=== PATIENT | female | born 1955 | race African-American/Black ===

== ENCOUNTER → 2018-07-15 | Outpatient (CLI) | payer BC ==
[~2018-07-15] MED LIST: ASPIRIN81 MG; BAYER ADVANCED500 MG; CLOPIDOGREL75 MG PO; FUROSEMIDE40 MG PO; HYZAAR 50-12.51 EACH; K-TAB10 MEQ PO; LASIX; LIPITOR10 MG PO; NADOLOL40 MG PO; PREMARIN0.45 MG PO; SPIRONOLACTONE25 MG PO; ZOLPIDEM TARTRA10 MG PO
--- NOTE | 2018-07-15 15:36 | Diagnostic Imaging Report ---
RIGHT HIP - 3 VIEWS HISTORY: Pain COMPARISON: None available. FINDINGS: Some of the osseous structures are partially obscured by stool and overlying bowel gas. 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 Osseous alignment is within normal limits. Joints: Mild bilateral degenerative changes of the hips and right sacroiliac joint. Soft tissues: The soft tissues appear unremarkable. IMPRESSION: 1. No acute radiographic abnormality. 2. 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 3. Mild bilateral osteoarthrosis of the hips. Signed by: Dr. Mohamud Richards D.O., M.M.M. on 07/15/2018 3:33 PM
--- NOTE | 2018-07-15 18:58 | Diagnostic Imaging Report ---
EXAMINATION: Right shoulder series. CLINICAL HISTORY: Bursitis of shoulder. COMPARISON: None. . Discussion: The osseous structures are intact without evidence of acute, displaced fracture or dislocation. No osteolytic or osteoblastic lesions. There is no evidence of a.c. separation. The glenohumeral joint is within normal limits. The soft tissues are unremarkable. IMPRESSION: 1. No acute abnormalities. MRI of the shoulder is recommended if there is continued pain and clinical concern for ligamentous or labral injury. Signed by: Dr. Naresh Roman M.D. on 07/15/2018 6:55 PM
== END ==
LOC: RAD 14:33
PROVIDERS: ATTEND Anesthesiologist Assistant
DX: M75.51 Bursitis of right shoulder (principal); M25.551 Pain in right hip

== ENCOUNTER → 2018-07-25 | Outpatient (CLI) | payer BC ==
--- NOTE | 2018-07-25 14:35 | Diagnostic Imaging Report ---
Exam: Cervical spine AP lateral oblique History: Neck pain Comparison: None. Findings: No fracture. Degenerative anterolisthesis of C4 on C5 and retrolisthesis of C5 on C6. Multilevel degenerative disc disease most prominent at C5-C6 and C6-C7. Multilevel facet arthropathy. Multilevel foraminal stenosis most prominent at C5-C6. Impression: Advanced multilevel cervical spondyloarthropathy most severe at C5-C6 with foraminal stenosis Signed by: Dr. Celestino Vogt M.D. on 07/25/2018 2:31 PM
== END ==
LOC: MRI 13:26
PROVIDERS: ATTEND Anesthesiologist Assistant
DX: M54.12 Radiculopathy, cervical region (principal)
CPT/HCPCS: 72050

== ENCOUNTER → 2018-08-04 | Day surgery (SDC) | payer BC ==
[2018-07-15 16:49] LABS: BASOPHILS % 0.1 % (0.0-1.0); HEMATOCRIT 39.5 % (34.2-44.1); HEMOGLOBIN 13.4 g/dL (12.0-16.0); LYMPHOCYTES # (AUTO) 2.4 (1.0-3.2); LYMPHOCYTES % 24.4 % (18.0-39.1); MEAN CORPUSCULAR HEMOGLOBIN 30.7 pg (28-32); MEAN CORPUSCULAR HGB CONC 33.9 g/dL (31-35); MEAN CORPUSCULAR VOLUME 90.4 fL (81-99); MONOCYTES # (AUTO) 0.3 (0.2-0.8); MONOCYTES % 3.3 % (4.4-11.3); NEUTROPHILS # (AUTO) 7.1 (2.1-6.9); NEUTROPHILS % 71.6 % (38.7-80.0); PLATELET COUNT 404 x10e3/uL (140-360); RED BLOOD COUNT 4.37 x10e6/uL (3.6-5.1); RED CELL DISTRIBUTION WIDTH 12.2 % (11.7-14.4)
[~2018-08-04] MED LIST changes: +FENTANYL CITRATE/PF 100MCG/2 ML INJ ONE; +HYOSCYAMINE SULFATE 0.5 MG/ML INJ ONE; +MIDAZOLAM HCL 2 MG/2 ML VIAL ONE; +PROPOFOL IV EMULSION 10 MG/ML 20 ML VIAL ONE
--- OUTSIDE RECORDS SUMMARY | 2018-08-04 10:38 | XMS REPORT | Continuity of Care Document ---
Author Author [facility] Interface Address Unknown Phone Unavailable Problems Problem Status Onset Date Classification Date Reported Comments Source Discharge Diagnosis: Dyspnea 11/19/2016 11/22/2016 [facility] SHORTNESS OF BREATH Active 11/19/2016 [facility] Z13.820 - ENCOUNTER FOR SCREENING FOR OS Active 09/06/2015 [facility] STAT; 729.5; CALF TENDERNESS 782.3; ROLDAN Active 03/29/2014 [facility] Final: Encounter for screening mammogram for malignant neoplasm of breast 09/10/2016 [facility] Migraines Active Problem 09/13/2017 [facility] Medications Medication Details Route Status Patient Instructions Ordering Provider Order Date Source Sodium Chloride 0.154 MEQ/ML Injectable Solution 1,000 mL, Infuse Over: 1 hr, Route: IV, ONCE, Priority: STAT, Dosing Weight 69.545 kg, Start date: 11/19/16 16:21:00 BUSINESS INFORMATION CONSULTANT, Duration: 1 doses or times, Stop date: 11/19/16 16:21:00 BUSINESS INFORMATION CONSULTANT Inactive 11/19/2016 [facility] Saline Flush 0.9% 10 mL, Route: IVP, Drug Form: INJ, kg, PRN, PRN Line Flush, Start date: 11/19/16 14:55:00 BUSINESS INFORMATION CONSULTANT, Duration: 30 day, Stop date: 12/19/16 15:54:00 CDTNotes: (Same as: BD Posiflush) Inactive 11/19/2016 [facility] Allergies, Adverse Reactions, Alerts Substance Category Reaction Severity Reaction type Status Date Reported Comments Source Immunizations Immunization Date Given Site Status Last Updated Comments Source Results Order Name Results Value Reference Range Date Interpretation Comments Source Breast Mammo Scrn CARLOS incl CAD MA Breast Mammo Scrn CARLOS incl CAD MA BILATERAL DIGITAL SCREENING MAMMOGRAM WITH CAD: 09/10/2017 CLINICAL: Screening/Annual Virginia Galvan 1955. Current study was evaluated with a Computer Aided Detection (CAD) system. COMPARISON:Comparison is made to exams dated: 09/07/2016 mammogram, 09/08/2015 mammogram, 09/14/2014 mammogram - [facility], 09/14/2013 mammogram - [facility], and 09/12/2012 mammogram - [facility]. TECHNIQUE: Mammographic views were obtained using digital acquisition. Current study was also evaluated with a Computer Aided Detection (CAD) system. FINDINGS: There are scattered fibroglandular densities in both breasts. Bilateral breast implants are intact. No significant masses, calcifications, or other findings are seen in either breast. There has been no significant interval change. IMPRESSION: BENIGN RECOMMENDATION:There is no mammographic evidence of malignancy. A 1 year screening mammogram is recommended.(09/11/2018) This exam was interpreted at [id number] at [facility] [place]. Professional services are provided by the [facility]. Rossy Simpson M.D. to/penrad:09/12/2017 08:34:28 Boat Puller(s): Edyta Awad [facility] letter sent: BI-RADS 1/2 Mammogram BI-RADS: 2 Benign 09/10/2017 - - Read by: Rossy Simpson MD Dictated Date/time: 09/12/17 08:34 Electronically Signed by: Rossy Simpson MD 09/12/17 08:34 FINAL REPORT [facility] URINE AND STOOL UA Ketones Negative 11/19/2016 [facility] URINE AND STOOL UA Urobilinogen <=1.0 mg/dL 0.1 - 1.0 11/19/2016 [facility] URINE AND STOOL UA WBC 1 /HPF 0 - 5 11/19/2016 [facility] URINE AND STOOL UA Mucus Few /LPF None Seen /LPF 11/19/2016 [facility] URINE AND STOOL UA Bacteria Occasional /HPF None Seen /HPF 11/19/2016 [facility] URINE AND STOOL UA Sq Epi Many /LPF Few /LPF 11/19/2016 [facility] URINE AND STOOL UA Leuk Est Negative (11/19/16 4:30 PM) Negative 11/19/2016 [facility] URINE AND STOOL UA Hyal Cast 15 /LPF 0 - 2 11/19/2016 [facility] URINE AND STOOL UA Blood Negative (11/19/16 4:30 PM) Negative 11/19/2016 [facility] URINE AND STOOL UA Nitrite Negative (11/19/16 4:30 PM) Negative 11/19/2016 [facility] URINE AND STOOL UA Spec Grav 1.010 <=1.030 11/19/2016 [facility] URINE AND STOOL UA pH 7.0 5.0 - 8.0 11/19/2016 [facility] URINE AND STOOL UA Protein Negative mg/dL Negative mg/dL 11/19/2016 [facility] URINE AND STOOL UA Glucose Negative mg/dL Negative mg/dL 11/19/2016 [facility] URINE AND STOOL UA Bili Negative *NA* (11/19/16 4:30 PM) Negative 11/19/2016 [facility] URINE AND STOOL UA Color Light Yellow *NA* (11/19/16 4:30 PM) Yellow 11/19/2016 [facility] URINE AND STOOL UA Turbidity Marked *ABN* (11/19/16 4:30 PM) Clear 11/19/2016 [facility] CARDIAC ENZYMES Troponin-I null 0.00 - 0.40 11/19/2016 [facility] CARDIAC ENZYMES CK MB null 0.5 - 3.6 11/19/2016 [facility] CARDIAC ENZYMES BNP 5 pg/mL <=100 pg/mL 11/19/2016 [facility] CARDIAC ENZYMES Total CK 57 unit/L 12 - 191 11/19/2016 [facility] CARDIAC ENZYMES CK MB Index null 0.0 - 2.5 11/19/2016 [facility] ELECTROLYTES Sodium Lvl 139 meq/L 135 - 145 11/19/2016 [facility] ELECTROLYTES Chloride Lvl 100 meq/L 95 - 109 11/19/2016 [facility] ELECTROLYTES Calcium Lvl 8.7 mg/dL 8.5 - 10.5 11/19/2016 [facility] ELECTROLYTES Potassium Lvl 3.6 meq/L 3.5 - 5.1 11/19/2016 [facility] ELECTROLYTES Albumin Lvl 3.5 g/dL 3.5 - 5.0 11/19/2016 [facility] ELECTROLYTES eGFR 67 mL/min/1.73m2 11/19/2016 Result Comment: The eGFR is calculated using the CKD-EPI formula. In most young, healthy individuals the eGFR will be >90 mL/min/1.73m2. The eGFR declines with age. An eGFR of 60-89 may be normal in some populations, particularly the elderly, for whom the CKD-EPI formula has not been extensively validated. Use of the eGFR is not recommended in the following populations: Individuals with unstable creatinine concentrations, including patients and those with serious co-morbid conditions. Patients with extremes in muscle mass or diet. The data above are obtained from the National Kidney Disease Education Program (NKDEP) which additionally recommends that when the eGFR is used in patients with extremes of body mass index for purposes of drug dosing, the eGFR should be multiplied by the estimated BMI. [facility] ELECTROLYTES ALT 23 unit/L 0 - 65 11/19/2016 [facility] ELECTROLYTES Total Protein 7.4 g/dL 6.4 - 8.4 11/19/2016 [facility] ELECTROLYTES B/C Ratio 12 6 - 25 11/19/2016 [facility] ELECTROLYTES AGAP 14.6 meq/L 10.0 - 20.0 11/19/2016 [facility] ELECTROLYTES CO2 28 meq/L 24 - 32 11/19/2016 [facility] ELECTROLYTES Creatinine Lvl 1.04 mg/dL 0.50 - 1.40 11/19/2016 [facility] ELECTROLYTES Globulin 3.9 g/dL 2.7 - 4.2 11/19/2016 [facility] ELECTROLYTES Alk Phos 99 unit/L 39 - 136 11/19/2016 [facility] ELECTROLYTES Bili Total 0.7 mg/dL 0.2 - 1.3 11/19/2016 [facility] ELECTROLYTES AST 18 unit/L 0 - 37 11/19/2016 [facility] ELECTROLYTES A/G Ratio 0.9 0.7 - 1.6 11/19/2016 [facility] ELECTROLYTES Glucose Lvl 90 mg/dL 70 - 99 11/19/2016 [facility] ELECTROLYTES BUN 13 mg/dL 7 - 22 11/19/2016 [facility] HEMATOLOGY Platelet 321 K/CMM 133 - 450 11/19/2016 [facility] HEMATOLOGY RDW 12.3 % 11.5 - 14.5 11/19/2016 [facility] HEMATOLOGY MPV 8.0 fL 7.4 - 10.4 11/19/2016 [facility] HEMATOLOGY Hct 34.8 % 36.0 - 48.0 11/19/2016 [facility] HEMATOLOGY Hgb 11.5 g/dL 12.0 - 16.0 11/19/2016 [facility] MCV 91.0 fL 80.0 - 98.0 11/19/2016 [facility] MCHC 33.1 g/dL 32.0 - 36.0 11/19/2016 [facility] MCH 30.2 pg 27.0 - 31.0 11/19/2016 [facility] WBC 6.1 K/CMM 3.7 - 10.4 11/19/2016 [facility] RBC 3.83 M/CMM 4.20 - 5.40 11/19/2016 [facility] INR 1.09 0.85 - 1.17 11/19/2016 [facility] PT 14.3 s 12.0 - 14.7 11/19/2016 [facility] PTT 30.7 s 22.9 - 35.8 11/19/2016 [facility] Segs-Bands # 2.6 K/CMM 1.5 - 8.1 11/19/2016 [facility] Basophils 0.3 % 0.0 - 1.0 11/19/2016 [facility] Monocytes 7.2 % 2.0 - 12.0 11/19/2016 [facility] Eosinophils 0.5 % 0.0 - 4.0 11/19/2016 [facility] HEMATOLOGY Segs 42.9 % 45.0 - 75.0 11/19/2016 [facility] Lymphocytes 49.1 % 20.0 - 40.0 11/19/2016 [facility] Monocytes # 0.4 K/CMM 0.0 - 0.8 11/19/2016 [facility] Lymphocytes # 3.0 K/CMM 1.0 - 5.5 11/19/2016 [facility] Chest Pulmonary Embolism CTA Chest Pulmonary Embolism CTA CLINICAL HISTORY: Chest pain. Sex: Female. : 1955. TECHNIQUE: CT angiography of the chest was performed with axial dataset after bolus intravenous injection of 100 cc of Omnipaque 300 including computer- generated multiplanar MIP reformations. Total Dose Length Product: [address] for comparison. Same-day chest x-ray at 1459 reviewed . Technical quality: Bolus timing: Adequate . Main pulmonary artery attenuation: 244 HU. Pulmonary arteries: No evidence for acute pulmonary embolism. Aorta: Normal in size without aneurysm or dissection. Heart size: Normal. Pericardial effusion None. Lungs: No pulmonary infiltrate. Pleura: No effusion. Mediastinum: No mass. Kirstie: No mass. Musculoskeletal: Unremarkable. Bilateral breast augmentation. Upper abdomen: Subcentimeter hepatic cyst. IMPRESSION: 1. There is no evidence for acute pulmonary embolism. 11/19/2016 - - Read by: Harlan Bay MD Dictated Date/time: 11/19/16 18:11 Electronically Signed by: Harlan Bay MD 11/19/16 18:14 FINAL REPORT [facility] Chest 2 views DX Chest 2 views DX Exam: Two-view chest x-ray Reason for Exam: Shortness of Breath Comparison Exam: None Discussion: Cardiomediastinal silhouette is within normal limits. Both hemidiaphragms well visualized. No pulmonary edema or pleural effusions. No focal lung consolidations. Trachea is midline. Bilateral breast prostheses are noted. No acute bony abnormalities. Impression: 1. No acute cardiopulmonary abnormalities. 11/19/2016 - - Read by: Gabo Hughes MD Dictated Date/time: 11/19/16 15:13 Electronically Signed by: Gabo Hughes MD 11/19/16 15:14 FINAL REPORT [facility] Digital Mammo Screening Carlos MA Digital Mammo Screening Carlos MA - DIGITAL MAMMO SCREENING CARLOS MA BILATERAL DIGITAL SCREENING MAMMOGRAM WITH CAD WITH AUGMENTATION: 09/07/2016 CLINICAL: Screening Virginia Byrne 1955. Current study was evaluated with a Computer Aided Detection (CAD) system. Comparison is made to exams dated: 09/08/2015 mammogram, 09/14/2014 mammogram - [facility], 09/14/2013 mammogram - [facility] and 09/12/2012 mammogram - [facility]. There are scattered fibroglandular densities in both breasts. Bilateral breast implants are intact. No significant masses, calcifications, or other findings are seen in either breast. There has been no significant interval change. IMPRESSION: BENIGN There is no mammographic evidence of malignancy. A 1 year screening mammogram is recommended. Professional services are provided by the [facility]. Rossy Simpson M.D. to/penrad:09/07/2016 13:15:09 Boat Puller: Edyta Awad, [facility] This exam was dictated and interpreted by [id number] at [facility]. letter sent: Normal exam Mammogram BI-RADS: 2 Benign 09/07/2016 - - Read by: Rossy Simpson MD Dictated Date/time: 09/07/16 13:15 Electronically Signed by: Rossy Simpson MD 09/07/16 13:15 FINAL REPORT [facility] Bone Density DXA Dual Energy MA Bone Density DXA [employer] MA - Bone Density DXA [employer] MA BONE DENSITY EVALUATION: 09/08/2015 CLINICAL DATA: Post menopausal. Z13.820 screening for osteoporosis. COMPARISON: 09/12/2012 AP L1-L4 region of spine using Lunar [employer] X-Ray Absorptiometry from [facility] with reported normal fracture risk, BMD of 1.383g/cm2, T-score of 1.50 and Z-score of 1.80. 09/12/2012 Left total femur area using [employer] X-Ray Absorptiometry from [facility] with reported normal fracture risk, BMD of 1.015g/cm2, T-score of 0.10 and Z-score of -0.20. FINDINGS: Bone density evaluation was performed 09/08/2015 on the AP L1-L4 region of spine using a Hologic unit. The BMD average for the exam is 1.028 g/cm2. The T-score is -0.20 and the Z-score is 0.50. This matches the World Health Organization's criteria for normal bone density and places the patient within normal limits of fracture risk. There is a -16.6% change from previous study. An additional bone density evaluation was performed 09/08/2015 on the right femur neck using a Hologic unit. The BMD average for the exam is 0.906 g/cm2. The T-score is 0.50 and the Z-score is 0.70. This matches the World Health Organization's criteria for normal bone density and places the patient within normal limits of fracture risk. An additional bone density evaluation was performed 09/08/2015 on the right total femur area using a Hologic unit. The BMD average for the exam is 0.994 g/cm2. The T-score is 0.40 and the Z-score is 0.50. This matches the World Health Organization's criteria for normal bone density and places the patient within normal limits of fracture risk. An additional bone density evaluation was performed 09/08/2015 on the left femur neck using a Hologic unit. The BMD average for the exam is 0.854 g/cm2. The Z- score is 0.40. Complete risk assessment of this region was not determined. An additional bone density evaluation was performed 09/08/2015 on the left total femur area using a Hologic unit. The BMD average for the exam is 0.979 g/cm2. The T-score is 0.30 and the Z-score is 0.40. This matches the World Health Organization's criteria for normal bone density and places the patient within normal limits of fracture risk. There is a 3.2% change from previous study. Least significant change (LSC) for the current study cannot be applied to values obtained on the prior studies, which were performed with a different brand machine. The percentage of change is calculated, but no comment can be made as to the significance of this change given different scan types and analysis methods. IMPRESSION: BONE DENSITY WITHIN NORMAL LIMITS Patient is at normal risk for fracture. Patient consult w/primary care provider is recommended. This exam was dictated and interpreted by [id number] at [facility]. Rossy Simpson M.D. to/penrad:09/12/2015 09:50:40 Boat Puller: Dalia Mcgrath [facility] 09/08/2015 - - Read by: Rossy Simpson MD Dictated Date/time: 09/12/15 09:50 Electronically Signed by: Rossy Simpson MD 09/12/15 09:50 FINAL REPORT [facility] Digital Mammo Screening Carlos MA Digital Mammo Screening Carlos MA - DIGITAL MAMMO SCREENING CARLOS MA BILATERAL DIGITAL SCREENING MAMMOGRAM WITH CAD WITH AUGMENTATION: 09/08/2015 CLINICAL: [place] Maria 1955. Current study was evaluated with a Computer Aided Detection (CAD) system. Comparison is made to exams dated: 09/14/2014 mammogram - [facility], 09/14/2013 mammogram - [facility] and 09/12/2012 mammogram - [facility]. The tissue of both breasts is heterogeneously dense, which could obscure detection of small masses. Findings: Bilateral breast implants are stable. No significant masses, calcifications, or other findings are seen in either breast. There has been no significant interval change. IMPRESSION: BENIGN There is no mammographic evidence of malignancy. A 1 year screening mammogram is recommended. Joann jarrell/penrad:09/08/2015 10:26:47 Boat Puller: Edyta Ramsey, [facility] This exam was dictated and interpreted by [address] [place] [id number]. letter sent: Normal exam Mammogram BI-RADS: 2 Benign 09/08/2015 - - Read by: Joann Paniagua MD Dictated Date/time: 09/08/15 10:26 Electronically Signed by: Joann Paniagua MD 09/08/15 10:26 FINAL REPORT [facility] Digital Mammo Screening Carlos MA Digital Mammo Screening Carlos MA - DIGITAL MAMMO SCREENING CARLOS MA BILATERAL DIGITAL SCREENING MAMMOGRAM WITH CAD: 09/14/2014 CLINICAL: Screeninga. Current study was evaluated with a Computer Aided Detection (CAD) system. Comparison is made to exams dated: 09/14/2013 mammogram - [facility] and 09/12/2012 mammogram - [facility]. The tissue of both breasts is heterogeneously dense, which could obscure detection of small masses. Bilateral breast implants are stable. No significant masses, calcifications, or other findings are seen in either breast. There has been no significant interval change. IMPRESSION: NEGATIVE There is no mammographic evidence of malignancy. A screening mammogram in one year is recommended. Shey lakhani/penrad:09/14/2014 16:03:42 Boat Puller: Misty Kennedy, [facility] This exam was dictated and interpreted by [id number] for [facility] [place]. letter sent: Normal exam Mammogram BI-RADS: 1 Negative 09/14/2014 - - Read by: Shey Godinez MD Dictated Date/time: 09/14/14 16:03 Electronically Signed by: Shey Godinez MD 09/14/14 16:03 FINAL REPORT [facility] [place] Ext Lower Venous Doppler Bilat US Ext Lower Venous Doppler Bilat US HISTORY: Swelling. Bilateral lower extremity venous Doppler ultrasound exam demonstrates normal compressibility and flow in the common femoral, superficial femoral and popliteal venous segments. Normal distal augmentation. IMPRESSION: No evidence for lower extremity DVT SL:13 03/29/2014 - - Read by: Donaldo Bean MD Dictated Date/time: 03/29/14 15:29 Electronically Signed by: Donaldo Bean MD 03/29/14 15:29 FINAL REPORT [facility] Vital Signs Vital Sign Value Date Comments Source Respitory Rate 18 11/20/2016 [facility] Systolic (mm Hg) 132 11/20/2016 [facility] Diastolic (mm Hg) 55 11/20/2016 [facility] Systolic (mm Hg) 130 11/20/2016 [facility] Diastolic (mm Hg) 59 11/20/2016 [facility] Respitory Rate 17 11/20/2016 [facility] Systolic (mm Hg) 107 11/19/2016 [facility] Diastolic (mm Hg) 47 11/19/2016 [facility] Heart Rate 81 11/19/2016 [facility] Respitory Rate 18 11/19/2016 [facility] Weight 69.545 11/19/2016 [facility] BMI Calculated 27.16 11/19/2016 [facility] Height 160.02 cm 11/19/2016 [facility] Temperature Oral (F) 97.7 F 11/19/2016 [facility] Heart Rate 83 11/19/2016 [facility] Encounters Location Location Details Encounter Type Encounter Number Reason For Visit Attending Provider ADM Date DC Date Status Source [facility] Outpatient [id number] Avel Bapat 03/29/2014 03/30/2014 [facility] [place] Outpatient [id number] Faisal Packer 09/08/2015 09/09/2015 OCHOA PANIAGUA [facility] [place] Outpatient [id number] Faisal Packer 09/07/2016 09/08/2016 OCHOA PANIGAUA [facility] Emergency [id number] Matt Sen 11/19/2016 11/20/2016 [facility] [place] Outpatient [id number] Faisal Packer 09/10/2017 09/11/2017 [facility] [place] Procedures Procedure Code Date Perfomer Comments Source
--- OUTSIDE RECORDS SUMMARY | 2018-08-04 10:38 | XMS REPORT | Summary of Care ---
Author Author [facility] Outpatient Imaging [facility] [place] Address Unknown Phone Unavailable Encounter HQ Encntr_alias(FIN) [id number] Date(s): 09/07/16 - 09/07/16 [facility] [place] [address] [place] [address] Final: Encounter for screening mammogram for malignant neoplasm of breast Discharge Disposition: Home or Self Care Attending Physician: Faisal Packer MD Vital Signs No data available for this section Problem List No data available for this section Allergies, Adverse Reactions, Alerts No data available for this section Medications No data available for this section Results No data available for this section Immunizations No data available for this section Procedures No data available for this section Social History No data available for this section Assessment and Plan No data available for this section
--- OUTSIDE RECORDS SUMMARY | 2018-08-04 10:38 | XMS REPORT | Summary of Care ---
Author Author [facility] Organization [facility] Address Unknown Phone Unavailable Encounter DIXIE Madison(BRETT) [id number] Date(s): 11/19/16 - 11/19/16 [facility] [address] [place] [address]- Discharge Diagnosis: Dyspnea Discharge Disposition: Home or Self Care Attending Physician: Matt Sen MD Vital Signs 1 2 3 Most recent to oldest [Reference Range]: 160.02 cm (11/19/16 2:56 PM) Height 97.7 DegF (11/19/16 2:56 PM) Temperature Oral [96.4-99.1 DegF] 132/55 mmHg (11/19/16 7:57 PM) 130/59 mmHg (11/19/16 6:34 PM) 107/47 mmHg (11/19/16 5:29 PM) Blood Pressure [90-140/60-90 mmHg] 18 BRMIN (11/19/16 7:57 PM) 17 BRMIN (11/19/16 6:34 PM) 18 BRMIN (11/19/16 5:29 PM) Respiratory Rate [14-20 BRMIN] 81 bpm (11/19/16 5:29 PM) 83 bpm (11/19/16 2:56 PM) Peripheral Pulse Rate [60-100 bpm] 69.545 kg (11/19/16 2:56 PM) Weight 27.16 m2 (11/19/16 2:56 PM) Body Mass Index Problem List Condition Effective Dates Status Health Status Informant Migraines(Confirmed) Active Allergies, Adverse Reactions, Alerts Substance Reaction Severity Status NKDA Active Medications Saline Flush 0.9% 10 mL, Route: IVP, Drug Form: INJ, kg, PRN, PRN Line Flush, Start date: 11/19/16 14:55:00 [employer], Duration: 30 day, Stop date: 12/19/16 15:54:00 CDT Notes: (Same as: BD Posiflush) Start Date: 11/19/16 Stop Date: 11/19/16 Status: Discontinued Sodium Chloride 0.9% (Bolus) IV 1,000 mL, Infuse Over: 1 hr, Route: IV, ONCE, Priority: STAT, Dosing Weight 69.5 45 kg, Start date: 11/19/16 16:21:00 [employer]ING [employer] MANAGER, Duration: 1 doses or times, Stop date: 11/19/16 16:21:00 [employer]ING [employer] MANAGER Start Date: 11/19/16 Stop Date: 11/19/16 Status: Completed Results ELECTROLYTES Most recent to 1 oldest [Reference Range]: Sodium Lvl [135-145 139 mEq/L mEq/L] (11/19/16 4:25 PM) Potassium Lvl 3.6 mEq/L [3.5-5.1 mEq/L] (11/19/16 4:25 PM) Chloride Lvl [95-109 100 mEq/L mEq/L] (11/19/16 4:25 PM) CO2 [24-32 mEq/L] 28 mEq/L (11/19/16 4:25 PM) AGAP [10.0-20.0 14.6 mEq/L mEq/L] (11/19/16 4:25 PM) CHEM PANEL Most recent to 1 oldest [Reference Range]: Creatinine Lvl 1.04 mg/dL [0.50-1.40 mg/dL] (11/19/16 4:25 PM) eGFR 67 mL/min/1.73m2 1 *NA* (11/19/16 4:25 PM) BUN [7-22 mg/dL] 13 mg/dL (11/19/16 4:25 PM) B/C Ratio [6-25] 12 (11/19/16 4:25 PM) Glucose Lvl [70-99 90 mg/dL mg/dL] (11/19/16 4:25 PM) Total Protein 7.4 g/dL [6.4-8.4 g/dL] (11/19/16 4:25 PM) Albumin Lvl [3.5-5.0 3.5 g/dL g/dL] (11/19/16 4:25 PM) Globulin [2.7-4.2 3.9 g/dL g/dL] (11/19/16 4:25 PM) A/G Ratio [0.7-1.6] 0.9 (11/19/16 4:25 PM) Calcium Lvl 8.7 mg/dL [8.5-10.5 mg/dL] (11/19/16 4:25 PM) ALT [0-65 unit/L] 23 unit/L (11/19/16 4:25 PM) AST [0-37 unit/L] 18 unit/L (11/19/16 4:25 PM) Alk Phos [39-136 99 unit/L unit/L] (11/19/16 4:25 PM) Bili Total [0.2-1.3 0.7 mg/dL mg/dL] (11/19/16 4:25 PM) 1Result Comment: The eGFR is calculated using the [...] from the National Kidney Disease Education Program ( NKDEP) which additionally recommends that when the eGFR is used in patients with extremes of body mass index for purposes of drug dosing, the eGFR should be mul tiplied by the estimated BMI. CARDIAC ENZYMES Most recent to 1 oldest [Reference Range]: Total CK [12-191 57 unit/L unit/L] (11/19/16 4:25 PM) CK MB [0.5-3.6 <0.5 ng/mL ng/mL] (11/19/16 4:25 PM) CK MB Index <0.9 [0.0-2.5] (11/19/16 4:25 PM) Troponin-I <0.02 ng/mL [0.00-0.40 ng/mL] (11/19/16 4:25 PM) BNP [<=100 pg/mL] 5 pg/mL (11/19/16 4:25 PM) URINE AND STOOL Most recent to 1 oldest [Reference Range]: UA Turbidity [Clear] Marked *ABN* (11/19/16 4:30 PM) UA Color [Yellow] Light Yellow *NA* (11/19/16 4:30 PM) UA pH [5.0-8.0] 7.0 (11/19/16 4:30 PM) UA Spec Grav 1.010 [<=1.030] (11/19/16 4:30 PM) UA Glucose [Negative Negative mg/dL mg/dL] *NA* (11/19/16 4:30 PM) UA Blood [Negative] Negative (11/19/16 4:30 PM) UA Ketones Negative *NA* (11/19/16 4:30 PM) UA Protein [Negative Negative mg/dL mg/dL] (11/19/16 4:30 PM) UA Urobilinogen <=1.0 mg/dL [0.1-1.0 mg/dL] *NA* (11/19/16 4:30 PM) UA Bili [Negative] Negative *NA* (11/19/16 4:30 PM) UA Leuk Est Negative [Negative] (11/19/16 4:30 PM) UA Nitrite Negative [Negative] (11/19/16 4:30 PM) UA WBC [0-5 /HPF] 1 /HPF (11/19/16 4:30 PM) UA Bacteria [None Occasional /HPF Seen /HPF] *NA* (11/19/16 4:30 PM) UA Sq Epi [Few /LPF] Many /LPF *ABN* (11/19/16 4:30 PM) UA Hyal Cast [0-2 15 /LPF /LPF] *HI* (11/19/16 4:30 PM) UA Mucus [None Seen Few /LPF /LPF] *NA* (11/19/16 4:30 PM) HEMATOLOGY Most recent to 1 oldest [Reference Range]: WBC [3.7-10.4 K/CMM] 6.1 K/CMM (11/19/16 4:25 PM) RBC [4.20-5.40 3.83 M/CMM M/CMM] *LOW* (11/19/16 4:25 PM) Hgb [12.0-16.0 g/dL] 11.5 g/dL *LOW* (11/19/16 4:25 PM) Hct [36.0-48.0 %] 34.8 % *LOW* (11/19/16 4:25 PM) MCV [80.0-98.0 fL] 91.0 fL (11/19/16 4:25 PM) MCH [27.0-31.0 pg] 30.2 pg (11/19/16 4:25 PM) MCHC [32.0-36.0 33.1 g/dL g/dL] (11/19/16 4:25 PM) RDW [11.5-14.5 %] 12.3 % (11/19/16 4:25 PM) Platelet [133-450 321 K/CMM K/CMM] (11/19/16 4:25 PM) MPV [7.4-10.4 fL] 8.0 fL (11/19/16 4:25 PM) Segs [45.0-75.0 %] 42.9 % *LOW* (11/19/16 4:25 PM) Lymphocytes 49.1 % [20.0-40.0 %] *HI* (11/19/16 4:25 PM) Monocytes [2.0-12.0 7.2 % %] (11/19/16 4:25 PM) Eosinophils [0.0-4.0 0.5 % %] (11/19/16 4:25 PM) Basophils [0.0-1.0 0.3 % %] (11/19/16 4:25 PM) Segs-Bands # 2.6 K/CMM [1.5-8.1 K/CMM] (11/19/16 4:25 PM) Lymphocytes # 3.0 K/CMM [1.0-5.5 K/CMM] (11/19/16 4:25 PM) Monocytes # [0.0-0.8 0.4 K/CMM K/CMM] (11/19/16 4:25 PM) PT [12.0-14.7 14.3 seconds seconds] (11/19/16 4:25 PM) INR [0.85-1.17] 1.09 (11/19/16 4:25 PM) PTT [22.9-35.8 30.7 seconds seconds] (11/19/16 4:25 PM) Immunizations No data available for this section Procedures No data available for this section Social History Social History Type Response Smoking Status Never smoker; Exposure to Tobacco Smoke None; Cigarette Smoking Last 365 Days No; Reg Smoking Cessation Counseling No Assessment and Plan No data available for this section
--- OUTSIDE RECORDS SUMMARY | 2018-08-04 10:38 | XMS REPORT | Clinical Summary ---
Author Author [facility] Address Unknown Phone Unavailable Care Team Providers Care Shirt Maker Name Role Phone Kadeem Rivera MD PCP Allergies Comments Active Allergy Reactions Severity Noted Date nightmares Codeine Other (See 09/05/2016 Comments) Medications End Date Status Medication Sig Dispensed Refills Start Date Active spironolactone Take 25 mg by 0 (ALDACTONE) 25 MG mouth daily. tabletIndications: Edema, hypertension Active atorvastatin (LIPITOR) 10 Take 10 mg by 0 MG tabletIndications: mouth daily. hypercholesterolemia Active furosemide (LASIX) 40 MG Take 40 mg by 0 tablet mouth daily. Active zolpidem (AMBIEN) 10 mg Take 5 mg by 0 tablet mouth every night as needed for Insomnia 1/2 a tab as needed . Active valACYclovir (VALTREX) Take 500 mg 0 500 MG tablet by mouth as needed for Outbreaks. Active biotin 10,000 mcg TbDL Take 2 0 tablets by mouth daily. Active cyanocobalamin (VITAMIN Take 1,000 0 B-12) 1000 MCG tablet mcg by mouth daily. Active estrogens, conjugated, Take 0.45 mg 0 (PREMARIN) 0.45 MG tablet by mouth daily for 21 days then do not take for 7 days. . Active escitalopram oxalate Take 10 mg by 0 (LEXAPRO) 10 MG tablet mouth daily as needed. 08/13/2018 Active losartan-hydrochlorothiaz Take 1 tablet 30 tablet 3 filiberto (HYZAAR) 100-12.5 mg by mouth 7 per tabletIndications: daily. Essential hypertension Active clopidogrel (PLAVIX) 75 Take 75 mg by 0 mg tablet mouth daily. Active aspirin 81 MG EC tablet Take 81 mg by 0 mouth daily. Active cholecalciferol, vitamin Take by 0 D3, 2,000 unit Cap mouth. 08/13/2017 Discontinued losartan-hydrochlorothiaz Take 1 tablet 0 filiberto (HYZAAR) 50-12.5 mg by mouth per tabletIndications: daily. hypertension 08/13/2017 Discontinued clopidogrel (PLAVIX) 75 Take 75 mg by 0 mg tablet mouth 2 (two) times daily 1/2 tab am and 1/2 tab pm . 08/13/2017 Discontinued losartan-hydroCHLOROthiaz . 0 filiberto (HYZAAR) 100-25 mg 7 per tablet 02/11/2018 Discontinued aspirin (DAVID ASPIRIN) Take 325 mg 0 325 MG tablet by mouth daily. Active Problems Problem Noted Date Cognitive impairment 02/11/2018 Last Assessment & Plan: Patient may take tumeric as supplement. Patient to engage in cardiovascular exercise, at least 5 times a week for 30 minutes sessions. Chronic arterial ischemic stroke 09/05/2016 Last Assessment & Plan: Ok to continue Plavix and aspirin for stroke prevention. Patient to engage in cardiovascular exercise, at least 5 times a week for 30 minutes sessions. Internal carotid artery occlusion, left 07/24/2016 Dizziness 07/24/2016 Last Assessment & Plan: Patient may be having dizziness secondary to orthostatic hypotension and hypoperfusion. Dysarthria 07/24/2016 Hyperlipidemia 07/24/2016 Dizzinesses 07/23/2016 Essential hypertension Last Assessment & Plan: Patient to engage in cardiovascular exercise, at least 5 times a week for 30 minutes sessions Leg swelling Encounters Care Team Description Date Type Specialty Mark Anthony Tellez MD Chronic arterial ischemic stroke; Essential hypertension; Cognitive impairment 02/11/2018 Office Visit Neurology Mark Anthony Tellez MD Chronic arterial ischemic stroke; Essential hypertension; Dizziness 08/13/2017 Office Visit Neurology after 08/03/2017 Family History Medical History Relation Name Comments Hypertension Brother Cancer Cousin maternal breast cancer Diabetes Father Hypertension Father Migraines Maternal Aunt Diabetes Maternal Grandmother Heart disease Mother Hypertension Mother Stroke Mother Hypertension Sister Relation Name Status Comments Brother Cousin maternal Alive Father Maternal Aunt Maternal Grandmother Mother Sister Social History Date Tobacco Use Types Packs/Day Years Used Never Smoker Smokeless Tobacco: Never Used Alcohol Use Drinks/Week oz/Week Comments No Sex Assigned at Date Recorded Not on file Industry Job Start Date Occupation Not on file Not on file Not on file Travel End Travel History Travel Start No recent travel history available. Last Filed Vital Signs Time Taken Vital Sign Reading 02/11/2018 1:19 PM CDT Blood Pressure 145/76 02/11/2018 1:19 PM CDT Pulse 77 - Temperature - - Respiratory Rate - - Oxygen Saturation - - Inhaled Oxygen - Concentration 02/11/2018 1:19 PM CDT Weight 73 kg (161 lb) 02/11/2018 1:19 PM CDT Height 165.1 cm (5' 5") 02/11/2018 1:19 PM CDT Body Mass Index 26.79 Plan of Treatment Care Team Description [place] [address] [facility] [place] [address] 08/22/2018 Office Visit Neurology Health Maintenance Due Date Last Done Comments INFLUENZA VACCINE 06/16/2018 Results Not on fileafter 08/03/2017 Insurance Payer Benefit Subscriber ID Type Phone Address Plan / Group BLUE CROSS/BLUE SHIELD BCBS OS xxxxxxxxxxxx PPO [phone] [address] POS/PP[place] [address] O Advance Directives For more information, please contact: [facility] [address] [place] [address] Date Inactivated Comments Code Status Date Activated 07/25/2016 8:59 PM Full Code 07/23/2016 6:28 PM This code status was determined by: Patient
--- OUTSIDE RECORDS SUMMARY | 2018-08-04 10:38 | XMS REPORT ---
[facility] Address Unknown Phone Unavailable Care Team Providers Care Senior Controls Analyst Name Role Phone Krystal JEAN BAPTISTE Unavailable Unavailable Problems This patient has no known problems. Allergies, Adverse Reactions, Alerts This patient has no known allergies or adverse reactions. Medications This patient has no known medications. Results Test Description Test Time Test Comments Text Results Atomic Results Result Comments CERVICAL SPINE 4 OR 5 VIEWS 2018-07-25 14:30:00 [place] [address] Patient Name: ESTELLE ESQUIVEL MR #: [id number] : 1955 Age/Sex: 63/F Req #: [id number] Adm Physician: Ordered by: FAMILIA JEAN BAPTISTE AA-C Report #: [id number] Location: [facility] Room/Bed: Procedure: [id number] DX/CERVICAL SPINE 4 OR 5 VIEWS Exam Date: Exam Time: REPORT STATUS: Signed Exam: Cervical spine AP lateral oblique History: Neck pain Comparison: None. Findings: No fracture. Degenerative anterolisthesis of C4 on C5 and retrolisthesis of C5 on C6. Multilevel degenerative disc disease most prominent at C5-C6 and C6-C7. Multilevel facet arthropathy. Multilevel foraminal stenosis most prominent at C5-C6. Impression: Advanced multilevel cervical spondyloarthropathy most severe at C5-C6 with foraminal stenosis Signed by: Dr. Harshad Huber M.D. on 07/25/2018 2:31 PM Dictated By: HARSHAD HUBER MD 30 Transcribed By: JOHN on 07/25/181430 COPY TO: FAMILIA JEAN BAPTISTE SHOULDER RIGHT COMPLETE 2018-07-15 18:54:00 [place] [address] Patient Name: ESTELLE ESQUIVEL MR #: [id number] : 1955 Age/Sex: 63/F Req #: [id number] Adm Physician: Ordered by: FAMILIA JEAN BAPTISTE AA-C Report #: [id number] Location: [facility] Room/Bed: Procedure: [id number] DX/SHOULDER RIGHT COMPLETE Exam Date: 07/15/18 Exam Time: 1450 REPORT STATUS: Signed EXAMINATION: Right shoulder series. CLINICAL HISTORY: Bursitis of shoulder. COMPARISON: None. . Discussion: The osseous structures are intact without evidence of acute, displaced fracture or dislocation. No osteolytic or osteoblastic lesions. There is no evidence of a.c. separation. The glenohumeral joint is within normal limits. The soft tissues are unremarkable. IMPRESSION: 1. No acute abnormalities. MRI of the shoulder is recommended if there is continued pain and clinical concern for ligamentous or labral injury. Signed by: Dr. Jay Roman M.D. on 07/15/2018 6:55 PM Dictated By: JAY ROMAN MD 54 Transcribed By: JOHN on 07/15/181854 COPY TO: FAMILIA JEAN BAPTISTE HIP RIGHT 2-3 VW (+/- PELVIS) 2018-07-15 15:31:00 [place] [address] Patient Name: ESTELLE ESQUIVEL MR #: [id number] : 1955 Age/Sex: 63/F Req #: [id number] Adm Physician: Ordered by: FAMILIA JEAN BAPTISTE AA-C Report #: [id number] Location: [facility] Room/Bed: Procedure: [id number] DX/HIP RIGHT 2-3 VW (+/- PELVIS) Exam Date: Exam Time: REPORT STATUS: Signed RIGHT HIP - 3 VIEWS HISTORY: Pain COMPARISON: None available. FINDINGS: Some of the osseous structures are partially obscured by stool and overlying bowel gas. 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 Osseous alignment is within normal limits. Joints: Mild bilateral degenerative changes of the hips and right sacroiliac joint. Soft tissues: The soft tissues appear unremarkable. IMPRESSION: 1. No acute radiographic abnormality. 2. 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 3. Mild bilateral osteoarthrosis of the hips. Signed by: Dr. Tiffany Richards D.O., M.M.M. on 07/15/2018 3:33 PM Dictated By: TIFFANY RICHARDS DO 32 Transcribed By: JOHN on 07/15/181532 COPY TO: FAMILIA JEAN BAPTISTE
--- OUTSIDE RECORDS SUMMARY | 2018-08-04 10:38 | XMS REPORT | Summary of Care ---
Author Author [facility] [place] Address Unknown Phone Unavailable Encounter HQ Encntr_alias(FIN) [id number] Date(s): 09/08/15 - 09/08/15 [facility] [address] Discharge Disposition: Home Attending Physician: Faisal Packer MD Vital Signs [...]
--- OUTSIDE RECORDS SUMMARY | 2018-08-04 10:38 | XMS REPORT | Summary of Care ---
Author Author [facility] [place] Address Unknown Phone Unavailable Encounter HQ Encntr_aliel(FIN) [id number] Date(s): 09/10/17 - 09/10/17 [facility] [address] [address]- Discharge Disposition: Home or Self Care Attending Physician: Faisal Packer MD Vital Signs No data available for this section Problem List Condition Effective Dates Status Health Status Informant Migraines(Confirmed) Active Allergies, Adverse Reactions, Alerts Substance Reaction Severity Status NKDA Active Medications No data available for this section [...]
--- OUTSIDE RECORDS SUMMARY | 2018-08-04 10:38 | XMS REPORT | Summary of Care ---
Author Organization Unknown Address Unknown Phone Unavailable Encounter HQ Encntr_alias(BRETT) [id number] Date(s): 03/29/14 - 03/29/14 [facility] [address] Discharge Disposition: Home Physician Attending: Avel Mariano MD Physician_Referring: Avel Mariano MD Reason for Visit STAT; 729.5; CALF TENDERNESS 782.3; EDEMA Problem List No data available for this section Allergies, Adverse Reactions, Alerts No data available for this section Medications No data available for this section Medications Administered During Your Visit No data available for this section Immunizations No data available for this section
[2018-08-04 13:30] VITALS: BP 112/72
--- NOTE | 2018-08-04 14:48 | Operative Report ---
DATE OF PROCEDURE: August 04, 2018 REFERRING PHYSICIAN: Dr. Kadeem Calles PROCEDURE PERFORMED: Colonoscopy. INDICATIONS FOR COLONOSCOPY: Colorectal cancer screening. MEDICATION: Patient was done under MAC. Please see anesthesiologist's note. PROCEDURE: With the patient in the left lateral decubitus position, the flexible fiberoptic Olympus colonoscope was inserted into the rectum with ease and advanced all the way to the cecum. It was then withdrawn slowly. Mucosa overlying the cecum, ascending colon, transverse colon appeared to be within normal limits. Some scattered diverticular disease was noted in the left colon. The rectum appeared to be within normal limits. The scope was then retroflexed into the distal rectum, and small internal hemorrhoids were noted, none of which was actively bleeding. The scope was then straightened out. It was subsequently withdrawn. The patient tolerated the procedure well. IMPRESSION 1. Diverticulosis. 2. Internal hemorrhoids, none actively bleeding. PLAN: Initiate high-fiber, low-fat diet. Initiate high-fiber supplement. Patient will need a followup colonoscopy in 5 to 10 years. Job#: [id number] cc:KADEEM CALLES M.D.
== END | disposition home or self-care (01) ==
LOC: OR 10:35
PROVIDERS: ATTEND Internal Medicine Gastroenterology
DX: Z12.11 Encounter for screening for malignant neoplasm of colon (principal); K57.30 Diverticulosis of large intestine without perforation or abscess without bleeding; K64.8 Other hemorrhoids; G43.909 Migraine, unspecified, not intractable, without status migrainosus; I10 Essential (primary) hypertension; R06.02 Shortness of breath; Z88.6 Allergy status to analgesic agent; Z01.810 Encounter for preprocedural cardiovascular examination; Z01.812 Encounter for preprocedural laboratory examination; Z79.82 Long term (current) use of aspirin; Z79.02 Long term (current) use of antithrombotics/antiplatelets; Z86.73 Personal history of transient ischemic attack (TIA), and cerebral infarction without residual deficits; Z86.711 Personal history of pulmonary embolism
CPT/HCPCS: 36415; 45378; 85025; 93005; J1980; J2250; J2704